=== PATIENT | female | born 1955 | race Two or more races ===

== ENCOUNTER 2019-03-04 05:01 | Day surgery (SDC) | payer MEDICARE, OTHER ==
[2019-03-03 07:22] LABS: BASOPHILS % (AUTO) 1.6 % (0.0-2.0); EOSINOPHILS % (AUTO) 5.6 % (0.0-3.0); HEMATOCRIT 41.1 % (37.0-47.0); HEMOGLOBIN 13.3 G/DL (12.0-16.0); LYMPHOCYTES % (AUTO) 31.8 % (20.0-45.0); MEAN CORPUSCULAR VOLUME 90 FL (80-99); MONOCYTES % (AUTO) 7.9 % (1.0-10.0); NEUTROPHILS % (AUTO) 53.1 % (45.0-75.0); PLATELET COUNT 186 K/UL (150-450); RED BLOOD COUNT 4.58 M/UL (4.20-5.40); RED CELL DISTRIBUTION WIDTH 13.7 % (11.6-14.8); WHITE BLOOD COUNT 4.4 K/UL (4.8-10.8)
[2019-03-03 07:45] LABS: ANION GAP 9 mmol/L (5-15); BLOOD UREA NITROGEN 8 mg/dL (7-18); CALCIUM 9.7 MG/DL (8.5-10.1); CARBON DIOXIDE 29 MMOL/L (21-32); CHLORIDE 106 MMOL/L (98-107); CREATININE 0.7 MG/DL (0.55-1.30); POTASSIUM 4.1 MMOL/L (3.5-5.1); SODIUM 143 MMOL/L (136-145)
--- NOTE | 2019-03-03 12:53 | Pre-Procedure Note/Attestation ---
Pre-Procedure Note/Attestation Complete Prior to Procedure Planned Procedure: right Procedure Narrative: Cataract extraction with intraocular lens implant right eye Indications for Procedure Pre-Operative Diagnosis: Nuclear sclerotic cataract right eye Attestation I attest that I discussed the nature of the procedure; its benefits; risks and complications; and alternatives (and the risks and benefits of such alternatives ), prior to the procedure, with the patient (or the patient's legal electronics parts sales representative). I attest that, if there was a reasonable possibility of needing a blood transfusion, the patient (or the patient's legal electronics parts sales representative) was given the [facility] standardized written summary, pursuant to the Juan Apolinar Blood Safety Act ([place] Health and Safety Code # 1645, as amended). I attest that I re-evaluated the patient just prior to the surgery and that there has been no change in the patient's H&P, except as documented below: Yang Arthur MD Mar 03, 2019 12:53
--- NOTE | 2019-03-03 12:55 | Opthalmology H&P ---
Ophthalmology H&P H&P Chief Complaint: decreased vision in right eye HPI Vision Affects Ability to: read, manage personal affairs HPI Narrative blurry vision right eye Exam Visual Acuity: OD 20/50 OS 20/40 Tension: OD 11 OS 12 Eye Exam: normal OU: external exam, palpebral fissure-width, marginal reflex distance, levator function, corneas, anterior chambers, fundus exam; findings: lens - cataracts NS OU Assessment/Plan Treatment Plan: cataract extraction w/ lens implant Goals of Treatment: improvement of vision, enhance quality of life Attestation Attestation The risks and benefits of the surgery as well as alternative procedures were explained to the patient in detail. Yang Arthur MD Mar 03, 2019 12:55
--- NOTE | 2019-03-03 16:15 | Pre-op HX & Phy Repo 2 SIG ---
DATE OF ADMISSION: 03/04/2019 PRESURGICAL INTERNAL MEDICINE HISTORY AND PHYSICAL DATE OF SURGERY: 03/04/2019 DATE OF EVALUATION: 03/03/2019 REASON FOR EVALUATION: I was asked by Dr. Yang Arthur to see this 64-year-old Faroese-speaking female, who is going for elective surgery on the right eye. The patient has nuclear sclerotic cataract, right eye. The patient was evaluated and chart was reviewed at [facility] outpatient procedure department. The patient is accompanied with her aide, who translates. PAST MEDICAL HISTORY/REVIEW OF SYSTEMS: Denies history of heart attack, chest pain, or palpitation. Denies history of stroke or seizures. No history of hypertension or diabetes. The patient has a history of hypothyroidism; colitis, chronic; obesity; and edema of right leg. No history of anemia or arthritis. PAST SURGICAL HISTORY: once. FAMILY HISTORY: Father from complication of pneumonia and mother after heart attack. The patient has three children, alive and well. ALLERGIES: To iodine. MEDICATIONS: Present medications include levothyroxine 50 mcg daily, pantoprazole 40 mg, Lasix, potassium supplement, clonazepam, and multivitamins. HABITS: Denies tobacco, alcohol, or street drug use. PHYSICAL EXAMINATION: GENERAL: Alert, well-developed and well-nourished female, ambulates with cane. VITAL SIGNS: Blood pressure 120/66, temperature 97.2, pulse 61 and regular, and respiration 18. O2 saturation 100% on room air. SKIN: Clear, warm, and dry. No rashes or ulceration. LYMPHATICS: Lymph nodes not enlarged. HEENT: Head is normocephalic and atraumatic. Ears, clear. No discharge. Nose, clear. No discharge. Mouth, clear and moist. Tongue midline. No dentures. Eyes, full description per Dr. Yang Arthur. NECK: Supple. No jugular venous distention. Carotids artery +2. Trachea midline. CHEST: No deformity or asymmetry. LUNGS: Clear to auscultation and percussion. No rales or rhonchi. HEART: Sinus rhythm. No ectopy. Sound distant. No murmur ABDOMEN: Soft, obese. Liver and spleen not enlarged. Ventral hernia fully reducible. EXTREMITIES: No edema. No varicose vein. No calf tenderness. GENITOURINARY: No dysuria. CVA nontender. NEUROLOGICAL: No tremor. No nystagmus. DIAGNOSTIC DATA: Electrocardiogram, normal sinus rhythm, 65 per minute. Normal ECG. The patient to be NPO after midnight tonight. LABORATORY DATA: Sodium 143, potassium 4.1, BUN 8, and creatinine 0.7. GFR more than 60. CBC - white blood cells 4.4, hemoglobin 13.3, and hematocrit 41.1. IMPRESSION: 1. Nuclear sclerotic cataract, right eye. 2. Hypothyroidism. 3. Obesity. 4. Low back pain syndrome. PLAN: Cataract extraction with intra-ocular lens implant, right eye per Dr. Yang Arthur tomorrow, 03/04/2019. CONCLUSION: The patient is a 64-year-old female, vital signs stable and EKG is normal. The patient's laboratory checked and normal limits. The patient's condition is optimized for surgery. Thank you very much, Dr. Arthur, for privilege to participate in presurgical care of this interesting patient. Hermelinda Cummings M.D. DR: PHILLIP JOB#: [id number] CC:
[2019-03-04] VITALS (9 sets, daily range): BP systolic 126–160; BP diastolic 60–86
[~2019-03-04] VITALS: Ht 157.5 cm; Wt 100.7 kg
[~2019-03-04 05:01] MED LIST: KLONOPIN1 MG ORAL; LEVOTHYROXINE75 MCG ORAL; PANTOPRAZOLE SO40 MG ORAL; TRAMADOL HCL50 MG ORAL
[2019-03-04] MEDS ORDERED: fentaNYL 100 mcg/2 mL IV ONE (05:02)
[2019-03-04] MEDS ORDERED: Midazolam 2mg/2ml Inj ONE (05:02)
[2019-03-04] MEDS: Diclofenac Sod 0.1% Op Soln RIGHT EYE SCH ×3 (05:28→05:49)
[2019-03-04] MEDS: Tropicamide 1% Opth 15ml Soln RIGHT EYE SCH ×3 (05:29→05:49)
[2019-03-04] MEDS: Phenylephrine 10% Opth Soln 5ml RIGHT EYE SCH ×3 (05:29→05:49)
[2019-03-04] MEDS: Tobramycin Op Soln 0.3% 5ml RIGHT EYE SCH ×3 (05:29→05:49)
[2019-03-04] MEDS: Cyclopentolate 1% Opth Sol 2ml RIGHT EYE SCH ×3 (05:29→05:49)
--- NOTE | 2019-03-04 06:57 | Anethesia Preoperative Eval ---
Anesthesia Pre-op PMH/ROS General Date of Evaluation: Mar 04, 2019 Time of Evaluation: 06:54 Anesthesiologist: socorro ASA Score: ASA 3 Mallampati Score Class I : Soft palate, uvula, fauces, pillars visible Class II: Soft palate, uvula, fauces visible Class III: Soft palate, base of uvula visible Class IV: Only hard plate visible Mallampati Classification: Class II Surgeon: sunny Diagnosis: nuclear sclerotic cataract right ete Surgical Procedure: cataract extraction w/iol implant right eye Anesthesia History: none Social History: smoking - nonsmoker Family History: no anesthesia problems Allergies: Coded Allergies: IODINATED CONTRAST- ORAL AND IV DYE (Verified Allergy, Severe, RASH , 03/03) Medications: see eMAR Patient NPO?: Yes Past Medical History Gastrointestinal/Genitourinary: Reports: GERD, other - hiatal hernia, Neurologic/Psychiatric: Reports: depression/anxiety, other - dizzines Endocrine: Reports: hypothyroidism Musculoskeletal/Integumentary: Reports: OA Other: obesity PSxH Narrative: hysterectomy Anesthesia Pre-op Phys. Exam Physician Exam Last Vital Signs Date Time Temp Pulse Resp B/P (MAP) Pulse Ox O2 Delivery O2 Flow Rate FiO2 03/04/19 05:38 98.0 69 18 126/60 98 Room Air Constitutional: NAD Neurologic: CN 2-12 intact Cardiovascular: RRR Respiratory: CTA Gastrointestinal: S/NT/ND Airway Exam Mallampati Score: Class II MO: limited Neck: short TMD: 2fb ROM: limited Anesthesia Pre-op A/P Labs Hematology Test 03/03/19 07:10 White Blood Count 4.4 K/UL (4.8-10.8) L Red Blood Count 4.58 M/UL (4.20-5.40) Hemoglobin 13.3 G/DL (12.0-16.0) Hematocrit 41.1 % (37.0-47.0) Mean Corpuscular Volume 90 FL (80-99) Mean Corpuscular Hemoglobin 29.1 PG (27.0-31.0) Mean Corpuscular Hemoglobin Concent 32.5 G/DL (32.0-36.0) Red Cell Distribution Width 13.7 % (11.6-14.8) Platelet Count 186 K/UL (150-450) Mean Platelet Volume 7.1 FL (6.5-10.1) Neutrophils (%) (Auto) 53.1 % (45.0-75.0) Lymphocytes (%) (Auto) 31.8 % (20.0-45.0) Monocytes (%) (Auto) 7.9 % (1.0-10.0) Eosinophils (%) (Auto) 5.6 % (0.0-3.0) H Basophils (%) (Auto) 1.6 % (0.0-2.0) Chemistry Test 03/03/19 07:10 Sodium Level 143 MMOL/L (136-145) Potassium Level 4.1 MMOL/L (3.5-5.1) Chloride Level 106 MMOL/L (98-107) Carbon Dioxide Level 29 MMOL/L (21-32) Anion Gap 9 mmol/L (5-15) Blood Urea Nitrogen 8 mg/dL (7-18) Creatinine 0.7 MG/DL (0.55-1.30) Estimat Glomerular Filtration Rate > 60 mL/min (>60) Glucose Level 140 MG/DL (74-106) H Calcium Level 9.7 MG/DL (8.5-10.1) Risk Assessment & Plan Assessment: asa3 Plan: mac Status Change Before Surgery: No Pre-Antibiotics Drug: Deysi Barros MD Mar 04, 2019 06:57
[2019-03-04] MEDS ORDERED: Tetracaine 0.5% Opth 4ml Soln RIGHT EYE ONE (07:00)
[2019-03-04] MEDS ORDERED: Pilocarpine 1% Opth 15ml Soln ONE (07:00)
[2019-03-04] MEDS ORDERED: Midazolam 2mg/2ml Inj IVP PRN (07:00)
[2019-03-04] MEDS ORDERED: Akten 3.5% 1ml Btl RIGHT EYE ONE (07:00)
[2019-03-04] MEDS ORDERED: fentaNYL 100 mcg/2 mL IV PRN (07:00)
[2019-03-04] MEDS ORDERED: Atropine Sulfate 0.4mg/ml inj IVP PRN (07:00)
[2019-03-04] MEDS ORDERED: Proparacaine 0.5% Opth Soln 15ml RIGHT EYE ONE (07:00)
[2019-03-04] MEDS ORDERED: DiphenhydrAMINE 50mg/ml Inj IVP PRN (07:00)
[2019-03-04] MEDS ORDERED: Pred Forte 1% Opth Susp 1ml ONE (07:00)
[2019-03-04] MEDS ORDERED: acetaZOLAMIDE 500mg Inj ONE (07:09)
[2019-03-04] MEDS ORDERED: EPINEPHrine 1mg/1ml Amp ONE (07:09)
[2019-03-04] MEDS ORDERED: Carbachol 0.01% Op Soln 1.5ml vial ONE (07:09)
[2019-03-04] MEDS ORDERED: Dexamethasone 4mg/ml vial ONE (07:10)
[2019-03-04] MEDS ORDERED: Povidone-Iodine 5% opth solution ONE (07:11)
[2019-03-04] MEDS ORDERED: BSS 15ml BTL ONE (07:11)
[2019-03-04] MEDS ORDERED: BSS 500ml btl ONE (07:11)
[2019-03-04] MEDS ORDERED: Tetracaine 0.5% Opth 4ml Soln ONE (07:11)
[2019-03-04] MEDS ORDERED: Sodium Hyaluronate 14 mg/ml 0.85ml ONE (07:12)
[2019-03-04] MEDS ORDERED: Bupivacaine 0.75% 30ml vial INJ ONE (07:12)
[2019-03-04] MEDS ORDERED: LR 1000ml ONE (08:00)
[2019-03-04] MEDS ORDERED: Sterile Water Irrig 1000ml IRRIG ONE (08:00)
[2019-03-04] MEDS ORDERED: NS Irrig 1000ml ONE (08:00)
[2019-03-04] MEDS ORDERED: Tobradex Opth Oint 3.5gm ONE (08:03)
--- NOTE | 2019-03-04 09:02 | 48 Hour Post Anesthesia Eval ---
Post Anesthesia Evaluation Procedure: cataract extraction w/iol implant right eye Date of Evaluation: Mar 04, 2019 Time of Evaluation: 08:53 Blood Pressure Systolic: 144 0: 66 Pulse Rate: 69 Respiratory Rate: 18 Temperature (Fahrenheit): 97.7 O2 Sat by Pulse Oximetry: 96 Airway: patent Nausea: No Vomiting: No Pain Intensity: 0 Hydration Status: adequate Cardiopulmonary Status: stable Mental Status/LOC: patient returned to baseline Post-Anesthesia Complications: none Follow-up care needed: N/A Deysi Obrien MD Mar 04, 2019 09:02
--- NOTE | 2019-03-04 09:02 | Immediate Post-Op Evaluation ---
Immediate Post-Op Evalulation Immediate Post-Op Evalulation Procedure: cataract extraction w/iol implant right eye Date of Evaluation: Mar 04, 2019 Time of Evaluation: 08:51 IV Fluids: 250ml lr Blood Products: none Estimated Blood Loss: negligible Blood Pressure Systolic: 160 Blood Pressure Diastolic: 86 Pulse Rate: 71 Respiratory Rate: 18 O2 Sat by Pulse Oximetry: 95 Temperature (Fahrenheit): 97.7 Pain Score (1-10): 0 Nausea: No Vomiting: No Complications none Patient Status: awake, reacts, patent Hydration Status: adequate Drug: Deysi Barros MD Mar 04, 2019 09:02
--- NOTE | 2019-03-07 12:20 | Brief Operative Note ---
Immediate Post Operative Note Operative Note Chief Complaint: blurry vison right eye Pre-op Diagnosis: Nuclear sclerotic cataract right eye Procedure: Cataract extraction with intraocular lens implant right eye Post-op Diagnosis: Pseudophakia Post-op Diagnosis: same as pre-op Findings: consistent w/pre-op dx studies Surgeon: Yang Arthur MD Anesthesiologist: Deysi Hebert MD Anesthesia: MAC Specimen: none Complications: none Condition: stable Fluids: LR Estimated Blood Loss: none Drains: none Implant(s) used?: Yes - IOL OD Yang Arthur MD Mar 07, 2019 12:20
--- NOTE | 2019-03-07 12:24 | Operative Note - PDOC ---
Operative Note Operative Note Date of Operation/Procedure: Mar 04, 2019 Chief Complaint: blurry vison right eye Pre-op Diagnosis: Nuclear sclerotic cataract right eye Procedure: Cataract extraction with intraocular lens implant right eye Post-op Diagnosis: Pseudophakia Post-op Diagnosis: same as pre-op Operative Findings: consistent w/pre-op dx studies Surgeon: Yang Arthur MD Anesthesiologist: Deysi Hebert MD Anesthesia: MAC Specimen: none Complications: none Condition: stable Fluids: LR Estimated Blood Loss: none Drains: none Implant(s) used?: Yes - IOL OD Indications for Procedure Nuclear sclerotic cataract right eye Description of Procedure This patient has been complaining visually significant cataract in the right eye with the best corrected visual acuity of 20/50 under moderate glare conditions worse. The patient complains of difficulties with glare in performing activities of daily living and wants to manage personal affairs with comfort and accuracy and see well enough to move with safety at home and outdoors. The risks, benefits and alternatives of the procedure were discussed with the patient in the office prior to scheduling surgery. All questions from the patient were answered after the surgical procedure was explained in detail. The risks of the procedure as explained to the patient include, but are not limited to, pain, infection, bleeding, loss of vision, retinal detachment, need for further surgery, loss of lens nucleus, double vision, etc. Alternative procedures were discussed which include, to do nothing or seek a second opinion. Informed consent for this procedure was obtained from the patient. The patient was referred to a primary care physician for a cardiopulmonary clearance prior to surgery, after proper evaluation was done patient was properly scheduled for outpatient surgery. The patient was brought to the operating room where the anesthesiologist established I.V. lines and cardiac monitoring leads. Mild intravenous sedation was administered. The patient was then prepared with a 5% solution of povidone -iodine to the conjunctival fornix and lashes, and a 5% solution of povidone- iodine to the lids and periorbital skin. The patient was then draped in the usual sterile fashion. A lid speculum was then placed in the operative eye. A keratome blade was then used to create a biplanar incision into the anterior chamber. Viscoelastics was then instilled into the anterior chamber. A capsulorrhexis was then fashioned with an utrata forceps followed by hydrodissection and hydro delineation of the lens nucleus. Paracentesis incision was made at 3 o'clock with sharp blade. The phacoemulsification unit, after being properly adjusted and tested, was then used to emulsify the nucleus followed by aspiration and irrigation of residual cortical material. Healon was then instilled into the anterior chamber. The corneal wound was then enlarged to the size of the optic with the fausto keratome blade. The intraocular lens was then inspected for right power and size and thought to be satisfactory. Then the lens was gently placed in the capsular bag. Positioning within the capsular bag was confirmed by direct visualization. Optic centration was accomplished with a Sinskey hook. Viscoelastics was removed from the anterior chamber using the irrigation and aspiration unit. The corneal wound was then tested for leaks and none were found. The lid speculum were then removed. Sponge and needle counts were correct. An eye patch and shield were placed over the operative eye. The patient was taken to the recovery room in stable condition. There were no complications. The patient tolerated the procedure well. The patient was then transferred to the ambulatory surgery unit in stable and satisfactory condition , was given detailed written instructions and asked to follow up in the office the next day. Yang Arthur MD Mar 07, 2019 12:23
== END 2019-03-04 10:15 | disposition home or self-care (01) ==
LOC: SUR 05:01
DX: H25.11 Age-related nuclear cataract, right eye (principal); E03.9 Hypothyroidism, unspecified; E66.9 Obesity, unspecified; M54.5 Low back pain; Z91.041 Radiographic dye allergy status; Z79.899 Other long term (current) drug therapy; K21.9 Gastro-esophageal reflux disease without esophagitis; F32.9 Major depressive disorder, single episode, unspecified; F41.9 Anxiety disorder, unspecified; M19.90 Unspecified osteoarthritis, unspecified site; Z90.710 Acquired absence of both cervix and uterus; Z68.41 Body mass index [BMI] 40.0-44.9, adult
CPT/HCPCS: 36415; 66984; 80048; 85025; 93005; J0171; J1100; J1120; J2250; J3010; J3370; V2632; 94003; 94150